=== PATIENT | female | born 2005 | race Caucasian/White ===

== ENCOUNTER 2023-03-09 10:39 | Outpatient (OUT) | payer MEDICAID, SELFPAY ==
[2023-03-09 11:14] LABS: Basophils Percent Auto 0.3 % (0.2-2.0); Eosinophils Absolute Auto 0.1 10^3/uL (0.0-0.7); Eosinophils Percent Auto 1.5 % (0.9-7.0); Hemoglobin 11.9 g/dL (12.0-16.0); Immature Granulocytes Abs Auto 0.02 10^3/uL (0.00-0.03); Immature Granulocytes Pct Auto 0.3 % (0.0-0.5); Lymphocytes Absolute Auto 2.5 10^3/uL (1.2-3.8); Lymphocytes Percent Auto 38.4 % (20.5-60.0); Mean Corpuscular HGB Conc 31.3 g/dL (29.9-35.2); Mean Corpuscular Hemoglobin 18.5 pg (26.7-34.0); Mean Platelet Volume 9.9 fL (9.5-13.5); Monocytes Absolute Auto 0.4 10^3/uL (0.3-0.8); Neutrophils Absolute Auto 3.5 10^3/uL (1.4-6.5); Neutrophils Percent Auto 53.5 % (43.0-75.0); Platelet Count 408 10^3/uL (150-450); Red Blood Count 6.44 10^6/uL (4.20-5.40); Red Cell Distribution Width 18.3 % (11.0-15.0); White Blood Count 6.5 10^3/uL (4.0-11.0)
[2023-03-09 11:17] LABS: HCG Qualitative Urine* NEGATIVE (NEGATIVE)
[2023-03-09 12:58] LABS: Alanine Aminotransferase 106 U/L (14-59); Albumin Globulin Ratio 1.3; Albumin Level 4.3 g/dL (3.4-5.0); Alkaline Phosphatase 78 U/L (46-116); Anion Gap 15.4; Aspartate Amino Transferase 35 U/L (15-37); Bilirubin Total 1.9 mg/dL (0.2-1.0); Calcium 8.9 mg/dL (8.5-10.1); Carbon Dioxide 23.2 mmol/L (21.0-32.0); Chloride 102 mmol/L (98-107); Cholesterol 157 mg/dL (104-227); Estimated GFR (African America >60 (>=60); Estimated GFR (Non-African Ame >60 (>=60); Globulin 3.3 g/dL; Glucose 97 mg/dL (74-106); HDL Cholesterol 39 mg/dL (29-69); LDL Cholesterol Calculated 97.6 mg/dL; Potassium 3.6 mmol/L (3.5-5.1); Sodium 137 mmol/L (136-145); Thyroid Stimulating Hormone 1.451 uIU/mL (0.516-4.130); Total Protein 7.6 g/dL (6.4-8.2); Triglycerides 102 mg/dL (53-208); VLDL CHOLESTEROL 20.4 mg/dL
[2023-03-10 08:11] LABS: Triiodothyronine (T3) 121 ng/dL (71-180)
== END 2023-03-09 10:40 | disposition home or self-care (01) ==
LOC: LAB 10:43
PROVIDERS: PCP Family Medicine
DX: Z79.899 Other long term (current) drug therapy (principal); N91.2 Amenorrhea, unspecified; N92.6 Irregular menstruation, unspecified
CPT/HCPCS: 36415; 80053; 80061; 82607; 82746; 83540; 84436; 84443; 84480; 84703; 85025